=== PATIENT | male | born 2000 | race Caucasian/White ===

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

== ENCOUNTER 2019-12-27 20:46 | Emergency (ER) | payer MEDICAID ==
[2019-12-27 21:01] VITALS: BP 117/74
== END 2019-12-27 22:02 | disposition left against medical advice (07) ==
LOC: ER 20:46
DX: Z53.21 Procedure and treatment not carried out due to patient leaving prior to being seen by health care provider (principal)

== ENCOUNTER 2020-02-03 15:53 | Emergency (ER) | payer MEDICAID ==
[2020-02-03 16:04] VITALS: BP 116/63
--- NOTE | 2020-02-03 17:37 | ER Document Report ---
HPI - HPI Time Seen by Provider: 02/03/20 17:23 Pain Level: 4 Context: Patient is a 19-year-old male who presents the emergency department with a chief complaint of the left ear pain at his pinna area. Patient states that he noticed a possible abscess to his left ear about 2 days ago. Patient states that he was able to squeeze a small amount of pus and blood out of the area. Denies any fever or body aches. - CONSTITUTIONAL Constitutional: DENIES: Fever, Chills - EENT EENT: REPORTS: Ear Pain - Lt. ear pinna - DERM Skin Color: Normal Skin Problems: None Past Medical History - Social History Smoking Status: Current Every Day Smoker Chew tobacco use (# tins/day): No Frequency of alcohol use: None Drug Abuse: None Family History: None Patient has homicidal ideation: No - Past Medical History Cardiac Medical History: Reports: Hx Hypertension Renal/ Medical History: Denies: Hx Peritoneal Dialysis Psychiatric Medical History: Reports: Hx Anxiety, Hx Attention Deficit Hyperactivity Disorder, Hx Bipolar Disorder, Hx Depression Past Surgical History: Reports: Hx Tonsillectomy - Immunizations Immunizations up to date: Yes Hx Diphtheria, Pertussis, Tetanus Vaccination: No Vertical Provider Document - CONSTITUTIONAL Agree With Documented VS: Yes Exam Limitations: No Limitations General Appearance: No Apparent Distress - INFECTION CONTROL TRAVEL OUTSIDE OF THE [place] IN LAST 30 DAYS: No - HEENT HEENT: Atraumatic, Normocephalic, PERRLA Notes: Tenderness noted to left pinna. - NECK Neck: Normal Inspection - RESPIRATORY Respiratory: No Respiratory Distress - CARDIOVASCULAR Cardiovascular: Regular Rate, Regular Rhythm Pulses: Normal: Radial - MUSCULOSKELETAL/EXTREMETIES Musculoskeletal/Extremeties: FROM - NEURO Level of Consciousness: Awake, Alert, Appropriate Motor/Sensory: No Motor Deficit, No Sensory Deficit - DERM Integumentary: Warm, Dry, No Rash Course - Re-evaluation Re-evalutation: 02/03/20 17:38 ENT is not on-call at this time. Advised the patient to follow-up with ENT tomorrow. Due to the location of the possible abscess, I feel it is appropriate for the patient to follow-up with ENT, as they are the specialist. He will be started on Bactrim. No evidence of sepsis noted. Patient is nontoxic in appearance. Follow-up precautions were given. Verbal discharge instructions were given to the patient. They verbalized understanding. They are stable for discharge. 02/03/20 17:52 I was typing up the patient's discharge paperwork and the patient ended up leaving. He did not receive his discharge paperwork. I attempted to call the phone number on the record and the voicemail was not set up and the phone did not ring. - Vital Signs Vital signs: Temp Pulse Resp BP Pulse Ox 99.4 F 93 18 116/63 100 02/03/20 16:03 02/03/20 16:03 02/03/20 16:03 02/03/20 16:03 02/03/20 16:03 Discharge - Discharge Clinical Impression: Painful left pinna on examination Condition: Stable Disposition: HOME, SELF-CARE Instructions: Trimethoprim-Sulfa ([facility]) Additional Instructions: You were seen today in the emergency department for ear pain. Please follow- up with ENT in regards to this visit. Call them tomorrow and can appointment. Take your antibiotics as prescribed. Take ibuprofen 600 mg every 6 hours for your pain. Prescriptions: Sulfamethoxazole/Trimethoprim [Bactrim Ds Tablet] 1 each PO BID 7 Days #14 tablet Ibuprofen [Motrin 600 mg Tablet] 600 mg PO Q8HP PRN #30 tablet PRN Reason: Referrals: CECILIA MCKEON DO [ASSOCIATE] - Follow up tomorrow
== END 2020-02-03 18:10 | disposition home or self-care (01) ==
LOC: ER 15:53
DX: H92.02 Otalgia, left ear (principal); F17.200 Nicotine dependence, unspecified, uncomplicated; I10 Essential (primary) hypertension
CPT/HCPCS: 99282

== ENCOUNTER 2020-05-15 11:09 | Emergency (ER) | payer MEDICAID ==
[2020-05-15 11:14] VITALS: BP 140/62
--- NOTE | 2020-05-15 11:40 | ER Document Report ---
ED Medical Screen (RME) - General Chief Complaint: Insect Bite Stated Complaint: POSSIBLE SPIDER BITE Time Seen by Provider: 05/15/20 11:34 Mode of Arrival: Ambulatory Information source: Patient Notes: 20-year-old male patient presenting to the emergency room with concerns for possible abscess to his right forearm. Patient denies history of IV drug use. He states that the abscess has been there for several days. He reports each day it drains copious amounts of foul-smelling pus. He denies any known history of MRSA. He does report having an abscess on his leg when he was a teenager. He denies any fever or chills. Open abscess noted to right forearm, copious amounts of purulent drainage coming from it. Surrounding erythema with induration. I have greeted and performed a rapid initial assessment of this patient. A comprehensive ED assessment and evaluation of the patient, analysis of test results and completion of the medical decision making process will be conducted by additional ED providers. I have specifically instructed the patient or family members with the patient to immediately return to any nursing staff should anything change in the patient's condition or with their chief complaint. TRAVEL OUTSIDE OF THE [place] IN LAST 30 DAYS: No - Related Data Allergies/Adverse Reactions: acetaminophen Allergy (Verified 05/15/20 11:33) quetiapine fumarate [From Seroquel] Adverse Reaction (Mild, Verified 05/15/20 11:33) risperidone [From Risperdal] Adverse Reaction (Mild, Verified 05/15/20 11:33) Past Medical History - Past Medical History Cardiac Medical History: Reports: Hx Hypertension Renal/ Medical History: Denies: Hx Peritoneal Dialysis Psychiatric Medical History: Reports: Hx Anxiety, Hx Attention Deficit Hyperactivity Disorder, Hx Bipolar Disorder, Hx Depression Past Surgical History: Reports: Hx Tonsillectomy - Immunizations Immunizations up to date: Yes Hx Diphtheria, Pertussis, Tetanus Vaccination: No Physical Exam - Vital signs Vitals: Temp Pulse Resp BP Pulse Ox 98.5 F 88 16 140/62 H 100 05/15/20 11:13 05/15/20 11:13 05/15/20 11:13 05/15/20 11:13 05/15/20 11:13 Course - Vital Signs Vital signs: Temp Pulse Resp BP Pulse Ox 98.5 F 88 16 140/62 H 100 05/15/20 11:13 05/15/20 11:13 05/15/20 11:13 05/15/20 11:13 05/15/20 11:13
[2020-05-15] MEDS ORDERED: LIDOCAINE 1% INJ-PF (10 MG/ML) 30 ML SDV INJ ONE (12:58)
[2020-05-15] MEDS ORDERED: CEFTRIAXONE INJ 1000 MG VIAL IM ONE (12:58)
--- NOTE | 2020-05-15 12:59 | ER Document Report ---
ED General - General Chief Complaint: Abscess Stated Complaint: POSSIBLE SPIDER BITE Time Seen by Provider: 05/15/20 11:34 Primary Care Provider: GABY BASS MD [ACTIVE STAFF] - 05/17/20 Mode of Arrival: Ambulatory Information source: Patient TRAVEL OUTSIDE OF THE [place] IN LAST 30 DAYS: No - HPI Notes: 20-year-old male presents to the emergency room today for evaluation of an abscess to his right forearm that has been there for at least 5 days. Patient states that he was bitten by a spider. Denies any IV drug use. Denies any fevers or chills. Reports that right forearm abscess has been draining for the last couple of days, reports purulent drainage. Denies any fevers or chills. Reports pain is 4-5, throbbing achy. Has not tried any heat compresses. Eating and drinking without any issues. Denies fevers, chills, chest pain,palpitations, shortness of breath, dyspnea, nausea, vomiting, diarrhea, abdominal pain, hematuria,neck pain, weakness, bowel or bladder dysfunction, saddle anesthesia, numbness or tingling in bilateral upper or lower extremities equally, muscle paralysis, weakness in bilateral upper or lower extremities equally or rash. Denies IV drug use. - Related Data Allergies/Adverse Reactions: acetaminophen Allergy (Verified 05/15/20 11:33) quetiapine fumarate [From Seroquel] Adverse Reaction (Mild, Verified 05/15/20 11:33) risperidone [From Risperdal] Adverse Reaction (Mild, Verified 05/15/20 11:33) Past Medical History - General Information source: Patient - Social History Smoking Status: Current Every Day Smoker Chew tobacco use (# tins/day): No Frequency of alcohol use: None Drug Abuse: None Family History: None, Reviewed & Not Pertinent Patient has homicidal ideation: No - Past Medical History Cardiac Medical History: Reports: Hx Hypertension Renal/ Medical History: Denies: Hx Peritoneal Dialysis Psychiatric Medical History: Reports: Hx Anxiety, Hx Attention Deficit Hyperactivity Disorder, Hx Bipolar Disorder, Hx Depression Past Surgical History: Reports: Hx Tonsillectomy - Immunizations Immunizations up to date: Yes Hx Diphtheria, Pertussis, Tetanus Vaccination: No Review of Systems - Review of Systems Constitutional: No symptoms reported EENT: No symptoms reported Cardiovascular: No symptoms reported Respiratory: No symptoms reported Gastrointestinal: No symptoms reported Genitourinary: No symptoms reported Male Genitourinary: No symptoms reported Musculoskeletal: No symptoms reported Skin: See HPI Hematologic/Lymphatic: No symptoms reported Neurological/Psychological: No symptoms reported Physical Exam - Vital signs Vitals: Temp Pulse Resp BP Pulse Ox 98.5 F 88 16 140/62 H 100 05/15/20 11:13 05/15/20 11:13 05/15/20 11:13 05/15/20 11:13 05/15/20 11:13 - Notes Notes: MEDICATIONS: I agree with the patient medications as charted by the RN. ALLERGIES: I agree with the allergies as charted by the RN. PAST MEDICAL HISTORY/PAST SURGICAL HISTORY: Reviewed and agree as charted by RN. SOCIAL HISTORY: Reviewed and agree as charted by RN. FAMILY HISTORY: No significant familial comorbid conditions directly related to patient complaint EXAM: Reviewed vital signs as charted by RN. PHYSICAL EXAMINATION:reviewed vital signs by RN GENERAL: Well-appearing, well-nourished and in no acute distress. HEAD: Atraumatic, normocephalic. EYES: Pupils equal round and reactive to light, extraocular movements intact, sclera anicteric, conjunctiva are normal. ENT: Nares patent, oropharynx clear without exudates. Moist mucous membranes. NECK: Normal range of motion, supple without lymphadenopathy LUNGS: Breath sounds clear to auscultation bilaterally and equal. No wheezes rales or rhonchi. HEART: Regular rate and rhythm without murmurs ABDOMEN: Soft, nontender, nondistended abdomen. No guarding, no rebound. No masses appreciated. Musculoskeletal: Normal range of motion, no pitting or edema. No cyanosis. NEUROLOGICAL: Cranial nerves grossly intact. Normal speech, normal gait. Normal sensory, motor exams PSYCH: Normal mood, normal affect. SKIN: Warm, Dry, normal turgor, no rashes or lesions noted. Right proximal dorsal aspect of forearm with approximately 1 cm x 1 cm area of erythema induration with purulent drainage from wound. Course - Re-evaluation Re-evalutation: 05/15/20 15:18 Afebrile vital stable no distress. Nurses notes reviewed. CBC negative for leukocytosis or anemia, CMP negative for hepatic or renal dysfunction, no electrolyte disturbances. High-pressure irrigation with 200 mils of normal saline to wound. Please see procedure note. Patient given 1 g Rocephin IM and started on outpatient antibiotic therapy, clindamycin 300 mg every 6 hours #28. Advised apply heat 20 minutes on 20 minutes off several times a day. I asked th e patient at least on 5 different occasions if he IV drug use and he states that he does not do IV drugs, and states this is from a spider bite. After performing a Medical Screening Examination, I estimate there is LOW risk for OPEN FRACTURE, COMPARTMENT SYNDROME, TENDON RUPTURE, ACUTE NEUROVASCULAR INJURY, or RETAINED FOREIGN BODY, thus I consider the discharge disposition reasonable. Also, there is no evidence or peritonitis, sepsis, or toxicity. I have reevaluated this patient multiple times and no significant life threatening changes are noted. The patient and I have discussed the diagnosis and risks, and we agree with discharging home with close follow-up with the understanding that symptoms and presentations can change. We also discussed returning to the Emergency Department immediately if new or worsening symptoms occur. We have discussed the symptoms which are most concerning (e.g., changing or worsening pain, fever, numbness, weakness, cool or painful digits) that necessitate immediate return. - Vital Signs Vital signs: Temp Pulse Resp BP Pulse Ox 98.5 F 88 16 140/62 H 100 05/15/20 11:33 05/15/20 11:13 05/15/20 11:13 05/15/20 11:13 05/15/20 11:13 - Laboratory Result Diagrams: 05/15/20 13:32 05/15/20 13:32 Laboratory results interpreted by me: 05/15/20 13:32 Calcium 10.3 H Total Protein 8.6 H Procedures - Incision and Drainage Right Arm Time completed: 15:19 Type: Simple - Wound already drainage. 100 mL normal saline high-pressure irrigation. Proximately 1 inch depth of wound I&D procedure: Shurclens applied, Iodoform packing placed - 2 inches of 1/4th idoform packing placed, Sterile dressing applied Incision Method: Incision made with needle - no incision made, wound was open and draining Amount/type of drainage: No drainage noted as the wound was already drained. Discharge - Discharge Clinical Impression: Abscess of right forearm Condition: Stable Disposition: HOME, SELF-CARE Instructions: Abscess ([facility]), MRSA Cellulitis ([facility]) Additional Instructions: Abscess You have an abscess (boil). This a pus-forming infection, usually due to staph. Some boils may be left to drain on their own, but most require lancing. From the time the tender lump first appears, it may be three or four days before the abscess is ready to chemo. Local heat and rest help at this stage of treatment. An antibiotic may prevent spread of the infection. Once the abscess is opened, packing may be placed into it. This is done so pus is not sealed inside by premature closure of the cavity. The packing will be removed at your follow-up visit or you may be advised to remove it yourself at home. Sometimes this packing must be replaced a few times during healing. The wound will heal with surprisingly little scar. Depending on the size and location of an abscess, healing can take one to four weeks. You may shower and wash the area around the incision site two or three times a day. Antibiotics may be prescribed, but are usually not necessary after an abscess has been drained. If you develop fever, chilling, worsening pain, or increasing swelling in the area, call the doctor or return immediately. You were given 1 g Rocephin today. Your lab work today was normal. Please apply heat 20 minutes on 20 minutes off several times a day. You can alternate between Tylenol and ibuprofen for pain control. Please take clindamycin as directed with food. Return immediately for any new or worsening symptoms. Please return in 48 hours for packing change or go to your primary care provider to have packing changed. You were given 10 mg of [place] today, do not drive, drink or operate machinery for the next 8 hours. Follow up with primary care provider, call tomorrow to make followup appointment. Prescriptions: Clindamycin HCl 300 mg PO Q6H #28 capsule Naproxen 500 mg PO BID #10 tablet Forms: Return to Work Referrals: GABY BASS MD [ACTIVE STAFF] - 05/17/20
[2020-05-15 13:58] LABS: ABSOLUTE BASOPHILS # (AUTO) 0.1 10^3/uL (0.0-0.2); ABSOLUTE EOSINOPHILS # (AUTO) 0.3 10^3/uL (0.0-0.6); ABSOLUTE LYMPHOCYTES (AUTO) 2.7 10^3/uL (0.5-4.7); ABSOLUTE MONOCYTES (AUTO) 0.5 10^3/uL (0.1-1.4); ABSOLUTE NEUT (AUTO) 3.1 10^3/uL (1.7-8.2); BASOPHILS % (AUTO) 1.4 % (0-2); EOSINOPHILS % (AUTO) 4.7 % (0-6); HEMOGLOBIN 15.7 g/dL (13.5-17.0); LYMPHOCYTES % (AUTO) 39.9 % (13-45); MEAN CORPUSCULAR HEMOGLOBIN 29.8 pg (27.0-33.4); MEAN CORPUSCULAR HGB CONC 35.8 g/dL (32.0-36.0); MEAN CORPUSCULAR VOLUME 83 fl (80-97); MONOCYTES % (AUTO) 7.4 % (3-13); PLATELET COUNT 383 10^3/uL (150-450); RED BLOOD COUNT 5.28 10^6/uL (4.35-5.55); RED CELL DISTRIBUTION WIDTH 13.5 % (11.5-14.0); SEGMENTED NEUTROPHILS % (AUTO) 46.6 % (42-78); TOTAL CELLS COUNTED % (AUTO) 100 %; WHITE BLOOD COUNT 6.7 10^3/uL (4.0-10.5)
[2020-05-15 14:20] LABS: ALBUMIN 4.7 g/dL (3.5-5.0); ALKALINE PHOSPHATASE 72 U/L (38-126); ANION GAP 11 (5-19); ASPARTATE AMINO TRANSFERASE 32 U/L (17-59); BILIRUBIN,DIRECT 0.2 mg/dL (0.0-0.4); BILIRUBIN,TOTAL 0.7 mg/dL (0.2-1.3); BLOOD UREA NITROGEN 12 mg/dL (7-20); CALCIUM 10.3 mg/dL (8.4-10.2); CARBON DIOXIDE 28 mmol/L (22-30); CHLORIDE 103 mmol/L (98-107); GLUCOSE 96 mg/dL (75-110); POTASSIUM 4.6 mmol/L (3.6-5.0); TOTAL PROTEIN 8.6 g/dL (6.3-8.2)
[2020-05-15] MEDS ORDERED: HYDROCODONE/ACETAMINOPHEN 10-325 MG TABLET PO ONE (15:18)
== END 2020-05-15 15:32 | disposition home or self-care (01) ==
LOC: ER 11:09
PROC: 0H9DXZZ Drainage of Right Lower Arm Skin, External Approach (ICD-10-PCS; principal; 2020-05-15)
DX: L02.413 Cutaneous abscess of right upper limb (principal); Z88.8 Allergy status to other drugs, medicaments and biological substances; F17.200 Nicotine dependence, unspecified, uncomplicated; I10 Essential (primary) hypertension
CPT/HCPCS: 99284; 96372; 36415; 87040; 87070; 87205; 85025; 87075; 87077; 80053; 87186; 10060; J3490; J0696

== ENCOUNTER 2020-05-17 15:34 | Emergency (ER) | payer MEDICAID ==
[2020-05-17 15:51] VITALS: BP 108/57
== END 2020-05-17 18:10 | disposition left against medical advice (07) ==
LOC: ER 15:34
DX: Z53.21 Procedure and treatment not carried out due to patient leaving prior to being seen by health care provider (principal)